=== PATIENT | male | born 1965 | race Two or more races ===

== ENCOUNTER 2019-07-30 12:15 | Emergency (ER) | payer MEDICAID, OTHER ==
[~2019-07-30] VITALS: Ht 172.7 cm; Wt 68.0 kg
[2019-07-30 12:20] VITALS: BP 170/101
--- NOTE | 2019-07-30 12:20 | NUR ---
PT BIBA RA 860 PER PT SEIZURE EPISODE LAST NIGHT UNWITNESSED, PT IS AAOX4, NOT IN RESPIRATORY DISTRESS, HOOKED TO MONITOR, KEPT RESTED AND COMFORTABLE, WILL CONTINUE TO MONITOR.
--- NOTE | 2019-07-30 12:27 | NUR ---
PADDY PARMAR AT BEDSIDE FOR EVAL.
[2019-07-30] MEDS ORDERED: oxyCODONE/APAP (5/325 MG) 1 UDTAB TABLET PO ONE (13:00)
[2019-07-30] MEDS ORDERED: oxyCODONE/APAP (5/325 MG) 1 UDTAB TABLET ONE (13:01)
--- NOTE | 2019-07-30 13:11 | NUR ---
Patient discharged to home in stable condition. Written and verbal after care instructions given. Patient verbalizes understanding of instruction.
--- NOTE | 2019-07-30 13:11 | NUR ---
PT REFUSED TO REMOVE ID BAND AND RUN AWAY.
== END 2019-07-30 13:15 | disposition home or self-care (01) ==
LOC: ER 12:17
DX: G89.29 Other chronic pain (principal); H26.8 Other specified cataract; I10 Essential (primary) hypertension; I21.9 Acute myocardial infarction, unspecified; F43.10 Post-traumatic stress disorder, unspecified; F41.9 Anxiety disorder, unspecified; Z98.890 Other specified postprocedural states

== ENCOUNTER 2019-08-12 12:18 | Emergency (ER) | payer MEDICAID, OTHER ==
[~2019-08-12] VITALS: Ht 172.7 cm; Wt 68.0 kg
[2019-08-12 12:54] VITALS: BP 144/89
[2019-08-12] MEDS ORDERED: oxyCODONE HCL SR 10MG TAB.SR.12H PO SCH (14:00)
== END 2019-08-12 14:14 | disposition home or self-care (01) ==
LOC: ER 12:19
DX: G89.29 Other chronic pain (principal); R51 Headache; I10 Essential (primary) hypertension; I25.2 Old myocardial infarction; F41.9 Anxiety disorder, unspecified; F43.10 Post-traumatic stress disorder, unspecified; Z88.6 Allergy status to analgesic agent; Z88.8 Allergy status to other drugs, medicaments and biological substances